=== PATIENT | female | born 1970 | race Caucasian/White ===

== ENCOUNTER → 2017-04-21 | Outpatient (CLI) | payer OTHER | LOC: FIMAGING 07:57 | PROVIDERS: ATTEND Nurse Practitioner Obstetrics & Gynecology | DX: Z12.31 Encounter for screening mammogram for malignant neoplasm of breast (principal) | CPT/HCPCS: G0202 ==

== ENCOUNTER → 2018-05-25 | Outpatient (CLI) | payer OTHER | LOC: FIMAGING 14:35 | DX: Z12.31 Encounter for screening mammogram for malignant neoplasm of breast (principal) ==

== ENCOUNTER 2018-08-20 05:45 | Day surgery (SDC) | payer OTHER ==
--- NOTE | 2018-08-19 21:00 | PDGENHP ---
History and Physical - Chief Complaint RIGHT HIP PAIN - History of Present Illness 1. Right~Femoroacetabular impingement (JULIET) Cam type~ 2. ~~Right Hip Dysplasia 3. Left Hip JULIET and Dysplasia - Asymptomatic HISTORY OF PRESENT ILLNESS: Carolis a 47 y.o.~very ~active female~who I have had the pleasure to consult on today.~I have enjoyed meeting her. She~lives in [place]. 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 ~She~is ; she~has two children. ~Carolenjoys snowboarding, running, biking, hiking, and anything outside. Alexandra's right~hip pain started May~2014, while snowboarding in [place], with no~previous complaints~and with some~recalled trauma or injury. ~Caroldoes not have~a known history of hip dysplasia. Presentation today is of~anterolateral right~hip pain. ~The hip does~wake her~ at night and does not~click and catch on her. Sitting does not present a problem for her. Caroldoes not~report suffering from lower back pain episodes. Carolhas not~participated in physical therapy and has not~tried other conservative measures. She~has not~received sufficient symptomatic improvement. Carolhas~utilized medication for pain management, including NSAID. Carolhas used medication for several months. Caroldenies issues with the left hip. ~ Carolunderstands that she~has a hip and pelvis problem which should be researched and wishes to get a better understanding of her~hip status, followed by an establishment of a treatment strategy, hoping she~would be able to get back to her~well being active life. History: Past medical history: ~ None which is relevant Relevant familial history: Father FINESSE Past surgical history: None Carolhas never received general anesthesia. I have reviewed, verified and agree with the past medical, surgical, family and social history. Current Medications:Curtishas a current medication list which includes the following prescription(s): ibuprofen. ALLERGIES:~has No Known Allergies. Objective: Physical Examination: Carolis 5 feet 5~inches tall and weighs~142~Lbs. Carolis AAO x3; she~is well- nourished, in NAD. Skin is warm and dry. ~Breathing is non-labored. ~CV with RRR by pulse. Abdomen is soft, NTND. ~Currently, she~walks with a normal~gait. She~has~minimal left leg length discrepancy and presents~with significant signs of joint laxity.~~Beighton Score 9. ~She~is fit looking. ~~ Trendelenburg sign is negative and proprioception~is reduced, left~side. Lower spine examination is negative~for sciatic or femoral nerve irritation with negative~SLR &~femoral stretch tests. Range of motion of the spine is normal~for flexion, extension, and rotations, with no~associated pain. SIJs examination is normal with abnormal bilateral tenderness~ROSENDA in relation and local tenderness. Strength, Sensation and pulses are normal - bilaterally Ankles and knees exams are normal~and no~mal-alignment is evident. Hip ROM (degrees): ER At 90~hip FL IR At 90~hip FL IR Neutral hip ER Neutral hip AB AD FL EX R 50 30 40 25 40 5 110 10 L 45 40 45 15 45 5 110 10 Specific hip and pelvis tests: Quadrant ROSENDA Roll Add. Longus R +++ + Negative Negative L + + Negative Negative Glut. Med ITB Pos. Imp R Negative Negative Negative L Negative Negative Negative Squeeze test measured strong Bony Symphysis pubis is pain free to touch while concentric activity of the rectus abdominis, does not~produce pain at its insertion. Ilio Psos specific tests are negative for pain during cycling for both hips~and unremarkable for snap. Greater trochanteric burse is tender with palpation on both hips. Piriformis tests: FAIR is negative, with no local signs of neuritis related to sciatic nerve. Thigh circumference is asymmetric with low muscle atrophy on Right side. Hamstrings tests are negative~functional contraction and negative~tendinopathy. Imaging: Radiology studies which I~have personally reviewed, analyzed and measured are below: XR: AP of the hip and pelvis: Performed in a good~technique Coccyx to pubic symphysis distance 2.5 cm. 10 degree caudal/cephal Specific measurements show: NSA~ Lat. Cam LCE Lat. Pincer C.Over~sign Sharp's angle A.I~% Head~Coverage % Sourcil~ Angle ATDmm R N - 18 - - 49 42 59 7 N L N - 18 - - 46 44 63 12 [address] [place]~Lines are preserved. Minimal Pathological signs are seen in the Symphysis Pubis. Minimal Pathological signs are seen at the Ischial~tuberosity. ~~~~~~~~~~~~~ Pos. wall sign Sup. Lat. OA Joint Space-WBZ Joint Space-Medial NAD R + + 4.3 mm 4.3 mm 21mm L + - 5.4 mm 4.6 mm 24 mm Sclerosis ~~Dysplasia Cysts ISS Comments R Negative ++ Negative Negative L Negative ++ Negative Negative There is posterior over coverage and anterior deficiency due to excessive socket ante-version X Table lateral: Anterior cam lesion is seen Impression and plan:~ Carolis a 47 y.o.~active female~suffering from symptomatic right hip pain due to Right Femoroacetabular impingement (JULIET) Cam type and Right Hip Dyplasia~ causing significant disability to her~and altering~her~sport and life activities. Physical examination, imaging, and her~story correspond with the diagnosis mentioned above. I have explained the diagnosis and its significance to Caroland we have discussed the various possible treatment options~and their implications~with her. These include a hip arthroscopy followed by FERNANDO (periacetabular osteotomy) aiming to address the above pathology. We had a lengthy discussion about surgical options, including how arthroscopy will correct the labral tear that is causing Carolsignificant pain due to the nature of this highly innervated structure. However, the dysplasia is only correctable with FERNANDO procedure. We explained how this surgery is an open procedure, and though patients tend to do well in the long-term, it involves significant pain in the first 2-4 weeks post-op and a rather lengthy rehab. 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 Alexandra~understands that she~will be weight-bearing post-operatively. Alexandra~understand that hip arthroscopy and FERNANDO are two separate procedures that are best performed one week apart, with the arthroscopy commencing first to "tighten up" any pathology evident in the hip joint (labral repair or reconstruction etc.) and the FERNANDO open procedure occurring 7-10 days later to realign the acetabulum. Alexandra~will review the info presented. CT with 3D recon will be done in order to evaluate femoral torsion and to pre plan an accurate and optimal volume and location of bony resection. We will also obtain an MR dGEMRIC in order to evaluate the cartilage quality and make sure it is still in good shape for this significant intervention. Carolwill return to us for a follow-up visit after obtaining the planned imaging modalities, to discuss in detail a more accurate diagnosis and possible surgical management. Carolis happy with this plan. I have also supplied her~with handouts, outlining the expected surgical treatment and rehab involved. I wish Carolall the best, ~~ Aristides Diamond MS, PA-C History Information - Allergies/Home Medication List Allergies/Adverse Reactions: No Known Allergies Allergy (Verified 07/31/11 13:00) Home Medications: Cholecalciferol Vit D3 [Vitamin D3 (*)] 1,000 units PO DAILY 07/27/18 [Last Taken Unknown] valACYclovir [Valtrex (*)] 500 mg PO BID PRN 07/27/18 [Last Taken Unknown] I have personally reviewed and updated: medical history - Social History Smoking Status: Never smoked Review of Systems Review of Systems: Physical Exam Physical Exam:
[2018-08-20] MEDS ORDERED: PREGABALIN 150 MG CAP PO ONE (05:54)
[2018-08-20] MEDS ORDERED: ceFAZolin 2 GM/DEXTROSE 100 ML IV ONE (05:54)
[2018-08-20] MEDS ORDERED: ACETAMINOPHEN 500 MG TAB PO ONE (05:54)
[2018-08-20] MEDS ORDERED: LR 1,000 ML IV ONE (05:55)
[2018-08-20] MEDS ORDERED: EPINEPHrine 30 MG/30 ML MDV (0.1 MG/0.1 ML) ONE (06:41)
[2018-08-20] MEDS ORDERED: BUPIVACAINE/EPI 0.25% 30 ML SDV ONE (06:41)
[2018-08-20] MEDS ORDERED: MIDAZOLAM 2 MG/2 ML VIAL IVP ONE (06:46)
[2018-08-20] MEDS ORDERED: SCOPOLAMINE HYDROBROMIDE 1 MG/3 DAYS PATCH TD ONE (06:47)
[2018-08-20] MEDS ORDERED: fentaNYL 100 MCG/2 ML INJ ONE (07:05)
[2018-08-20] MEDS ORDERED: PROPOFOL/EMULSION 500 MG/50 ML BOTTLE IV ONE ×2 (07:06→08:44)
[2018-08-20] MEDS ORDERED: PROPOFOL 200 MG/20 ML VIAL ONE (07:06)
--- NOTE | 2018-08-20 07:06 | PDANEPAE ---
ANE Past Medical History - Cardiovascular History Hx Hypertension: No Hx Arrhythmias: No Hx Chest Pain: No Hx Coronary Artery / Peripheral Vascular Disease: No Hx CHF / Valvular Disease: No Hx Palpitations: No - Pulmonary History Hx COPD: No Hx Asthma/Reactive Airway Disease: No Hx Recent Upper Respiratory Infection: No Hx Oxygen in Use at Home: No Hx Sleep Apnea: No Sleep Apnea Screening Result - Last Documented: Negative - Neurologic History Hx Cerebrovascular Accident: No Hx Seizures: No Hx Dementia: No - Endocrine History Hx Diabetes: No - Renal History Hx Renal Disorders: No - Liver History Hx Hepatic Disorders: No - Neurological & Psychiatric Hx Hx Neurological and Psychiatric Disorders: No - Cancer History Hx Cancer: No - Congenital Disorder History Hx Congenital Disorders: Yes Congenital History Comment: HIP DYSPLASIA - GI History Hx Gastrointestinal Disorders: No - Other Health History Other Health History: LABRAL TEAR - Chronic Pain History Chronic Pain: Yes (JAIMIE HIPS) - Surgical History Prior Surgeries: NONE ANE Review of Systems Review of Systems: - Exercise capacity METS (RN): 6 METS ANE Patient History - Allergies Allergies/Adverse Reactions: No Known Allergies Allergy (Verified 07/31/11 13:00) - Home Medications Home Medications: Cholecalciferol Vit D3 [Vitamin D3 (*)] 1,000 units PO DAILY 07/27/18 [Last Taken Unknown] valACYclovir [Valtrex (*)] 500 mg PO BID PRN 07/27/18 [Last Taken Unknown] - NPO status NPO Since - Liquids (Date): 08/20/18 NPO Since - Liquids (Time): 03:00 NPO Since - Solids (Date): 08/19/18 NPO Since - Solids (Time): 19:00 - Smoking Hx Smoking Status: Never smoked - Family Anes Hx Family Hx Anesthesia Complications: NONE ANE Labs/Vital Signs - Vital Signs Blood Pressure: 108/70 Heart Rate: 66 Respiratory Rate: 9 O2 Sat (%): 97 Height: 165.1 cm Weight: 64.41 kg ANE Physical Exam - Airway Neck exam: FROM Mallampati Score: Class 1 Mouth exam: normal dental/mouth exam - Pulmonary Pulmonary: no respiratory distress - Cardiovascular Cardiovascular: regular rate and rhythym - ASA Status ASA Status: II ANE Anesthesia Plan Anesthesia Plan: general endotracheal anesthesia
[2018-08-20] MEDS ORDERED: ROCURONIUM 50 MG/5 ML VIAL ONE ×2 (07:07→07:35)
[2018-08-20] MEDS ORDERED: DEXAMETHASONE 4 MG/ML VIAL ONE (07:35)
[2018-08-20] MEDS ORDERED: HYDROmorphONE/DILAUDID 2 MG/ML INJ ONE (07:40)
[2018-08-20] MEDS ORDERED: METOCLOPRAMIDE 10 MG/2 ML VIAL ONE (07:50)
[2018-08-20] MEDS ORDERED: fentaNYL 100 MCG/2 ML INJ IVP PRN (09:28)
[2018-08-20] MEDS ORDERED: METOCLOPRAMIDE 10 MG/2 ML VIAL IVP PRN (09:28)
[2018-08-20] MEDS ORDERED: HYDROCODONE/APAP 5/325 TAB PO PRN (09:28)
[2018-08-20] MEDS ORDERED: oxyCODONE IR 5 MG TAB PO PRN (09:28)
[2018-08-20] MEDS ORDERED: ONDANSETRON 4 MG/2 ML VIAL IVP PRN (09:28)
[2018-08-20] MEDS ORDERED: PROMETHAZINE HCL 25 MG/ML INJ IVP PRN (09:28)
[2018-08-20] MEDS ORDERED: DEXAMETHASONE 4 MG/ML VIAL IVP PRN (09:28)
[2018-08-20] MEDS ORDERED: HYDROmorphONE/DILAUDID 1 MG/ML INJ IVP PRN (09:28)
[2018-08-20] MEDS ORDERED: NALOXONE HCL 0.4 MG/ML INJ IVP PRN (09:28)
[2018-08-20] MEDS ORDERED: LR 500 ML IV PRN (09:28)
[2018-08-20] MEDS ORDERED: DIAZEPAM 5 MG/ML 1 ML SYR IVP PRN (09:28)
[2018-08-20] MEDS ORDERED: ALBUTEROL 3 ML DEYVIAL IH PRN (09:28)
[2018-08-20] MEDS ORDERED: ACETAMINOPHEN 500 MG TAB PO PRN (09:28)
[2018-08-20] MEDS ORDERED: MEPERIDINE 25 MG/0.5 ML AMP IVP PRN (09:28)
[2018-08-20] MEDS ORDERED: ONDANSETRON 4 MG/2 ML VIAL ONE (09:32)
[2018-08-20] MEDS ORDERED: KETOROLAC 30 MG/1 ML SDV ONE (09:32)
[2018-08-20] MEDS ORDERED: NEOSTIGMINE METHYLSULFATE 5 MG/5 ML SYR ONE (09:48)
[2018-08-20] MEDS ORDERED: GLYCOPYRROLATE 0.2 MG/1 ML VIAL ONE ×2 (09:48→09:56)
--- NOTE | 2018-08-20 10:37 | POSTANESTH ---
Post Anesthetic Evaluation Cardiovascular Status: Normal, Stable Respiratory Status: Normal, Stable Level of Consciousness/Mental Status: Can Participate in Eval Pain Control: Adequate, Prn Tx Ordered Nausea/Vomiting Control: Adequate, Prn Tx Ordered Complications Possibly Related to Anesthesia: None Noted
--- NOTE | 2018-08-20 10:48 | POSTOPPROG ---
Post Op Note Date of Operation: 08/20/18 Surgeon: Gaudencio Del Rio Logistics Technician: Dr. Braun Anesthesia: GET(General Endotracheal) Pre-op Diagnosis: RIGHT JULIET Post-op Diagnosis: RIGHT JULIET Procedure: Right hip arthroscopy Inf/Abcess present in the surg proc area at time of surgery?: No
[2018-08-20] MEDS ORDERED: HYDROCODONE/APAP 5/325 TAB ONE (11:16)
[2018-08-20 12:17] VITALS: BP 98/64
== END 2018-08-20 12:18 | disposition home or self-care (01) ==
LOC: FSGY 05:45
PROVIDERS: ATTEND Orthopaedic Surgery Sports Medicine
PROC: 0QQ64ZZ Repair Right Upper Femur, Percutaneous Endoscopic Approach (ICD-10-PCS; principal; 2018-08-20 07:15)
PROC: 0SQ94ZZ Repair Right Hip Joint, Percutaneous Endoscopic Approach (ICD-10-PCS; principal; 2018-08-20 07:15)
PROC: 0MQL4ZZ Repair Right Hip Bursa and Ligament, Percutaneous Endoscopic Approach (ICD-10-PCS; principal; 2018-08-20 07:15)
DX: Q65.89 Other specified congenital deformities of hip (principal); M76.891 Other specified enthesopathies of right lower limb, excluding foot; M24.151 Other articular cartilage disorders, right hip
CPT/HCPCS: C1713; J0171; J0690; J1100; J1170; J1885; J2250; J2405; J2704; J2710; J2765; J3010

== ENCOUNTER 2018-08-31 05:53 | Inpatient (IN) | payer OTHER ==
--- NOTE | 2018-08-30 20:43 | PDGENHP ---
History and Physical - Chief Complaint Right Hip Pain - History of Present Illness Diagnosis: 1. History of Right hip arthroscopy 2. ~~Right Hip Dysplasia 3. Left Hip JULIET and Dysplasia - Asymptomatic HISTORY OF PRESENT ILLNESS: Carolis a 47 y.o.~very ~active female~who I have had the pleasure to consult on today.~I have enjoyed meeting her. She~lives in [place]. 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 ~She~is ; she~has two children. ~Carolenjoys snowboarding, running, biking, hiking, and anything outside. Titos right~hip pain started May~2014, while snowboarding in [place], with no~previous complaints~and with some~recalled trauma or injury. ~Caroldoes not have~a known history of hip dysplasia. Presentation today is of~anterolateral right~hip pain. ~The hip does~wake her~ at night and does not~click and catch on her. Sitting does not present a problem for her. Caroldoes not~report suffering from lower back pain episodes. Carolhas not~participated in physical therapy and has not~tried other conservative measures. She~has not~received sufficient symptomatic improvement. Carolhas~utilized medication for pain management, including NSAID. Carolhas used medication for several months. Caroldenies issues with the left hip. ~ Carolunderstands that she~has a hip and pelvis problem which should be researched and wishes to get a better understanding of her~hip status, followed by an establishment of a treatment strategy, hoping she~would be able to get back to her~well being active life. History: Past medical history: ~ None which is relevant Relevant familial history: Father FINESSE Past surgical history: Right Hip Arthroscopy Carolhas done well with general anesthesia I have reviewed, verified and agree with the past medical, surgical, family and social history. Current Medications:Curtishas a current medication list which includes the following prescription(s): ibuprofen. ALLERGIES:~has No Known Allergies. Objective: Physical Examination: Carolis 5 feet 5~inches tall and weighs~142~Lbs. Carolis AAO x3; she~is well- nourished, in NAD. Skin is warm and dry. ~Breathing is non-labored. ~CV with RRR by pulse. Abdomen is soft, NTND. ~Currently, she~walks with a normal~gait. She~has~minimal left leg length discrepancy and presents~with significant signs of joint laxity.~~Beighton Score 9. ~She~is fit looking. ~~ Trendelenburg sign is negative and proprioception~is reduced, left~side. Lower spine examination is negative~for sciatic or femoral nerve irritation with negative~SLR &~femoral stretch tests. Range of motion of the spine is normal~for flexion, extension, and rotations, with no~associated pain. SIJs examination is normal with abnormal bilateral tenderness~ROSENDA in relation and local tenderness. Strength, Sensation and pulses are normal - bilaterally Ankles and knees exams are normal~and no~mal-alignment is evident. Hip ROM (degrees): ER At 90~hip FL IR At 90~hip FL IR Neutral hip ER Neutral hip AB AD FL EX R 50 30 40 25 40 5 110 10 L 45 40 45 15 45 5 110 10 Specific hip and pelvis tests: Quadrant ROSENDA Roll Add. Longus R +++ + Negative Negative L + + Negative Negative Glut. Med ITB Pos. Imp R Negative Negative Negative L Negative Negative Negative Squeeze test measured strong Bony Symphysis pubis is pain free to touch while concentric activity of the rectus abdominis, does not~produce pain at its insertion. Ilio Psos specific tests are negative for pain during cycling for both hips~and unremarkable for snap. Greater trochanteric burse is tender with palpation on both hips. Piriformis tests: FAIR is negative, with no local signs of neuritis related to sciatic nerve. Thigh circumference is asymmetric with low muscle atrophy on Right side. Hamstrings tests are negative~functional contraction and negative~tendinopathy. Imaging: Radiology studies which I~have personally reviewed, analyzed and measured are below: XR: AP of the hip and pelvis: Performed in a good~technique Coccyx to pubic symphysis distance 2.5 cm. 10 degree caudal/cephal Specific measurements show: NSA~ Lat. Cam LCE Lat. Pincer C.Over~sign Sharp's angle A.I~% Head~Coverage % Sourcil~ Angle ATDmm R N - 18 - - 49 42 59 7 N L N - 18 - - 46 44 63 12 [address] [place]~Lines are preserved. Minimal Pathological signs are seen in the Symphysis Pubis. Minimal Pathological signs are seen at the Ischial~tuberosity. ~~~~~~~~~~~~~ Pos. wall sign Sup. Lat. OA Joint Space-WBZ Joint Space-Medial NAD R + + 4.3 mm 4.3 mm 21mm L + - 5.4 mm 4.6 mm 24 mm Sclerosis ~~Dysplasia Cysts ISS Comments R Negative ++ Negative Negative L Negative ++ Negative Negative There is posterior over coverage and anterior deficiency due to excessive socket ante-version X Table lateral: Anterior cam lesion is seen Impression and plan:~ Carolis a 47 y.o.~active female~suffering from symptomatic right hip pain due to Right Femoroacetabular impingement (JULIET) Cam type and Right Hip Dyplasia~ causing significant disability to her~and altering~her~sport and life activities. Physical examination, imaging, and her~story correspond with the diagnosis mentioned above. I have explained the diagnosis and its significance to Caroland we have discussed the various possible treatment options~and their implications~with her. These include a hip arthroscopy followed by FERNANDO (periacetabular osteotomy) aiming to address the above pathology. We had a lengthy discussion about surgical options, including how arthroscopy will correct the labral tear that is causing Carolsignificant pain due to the nature of this highly innervated structure. However, the dysplasia is only correctable with FERNANDO procedure. We explained how this surgery is an open procedure, and though patients tend to do well in the long-term, it involves significant pain in the first 2-4 weeks post-op and a rather lengthy rehab. 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 Alexandra~understands that she~will be weight-bearing post-operatively. Alexandra~understand that hip arthroscopy and FERNANDO are two separate procedures that are best performed one week apart, with the arthroscopy commencing first to "tighten up" any pathology evident in the hip joint (labral repair or reconstruction etc.) and the FERNANDO open procedure occurring 7-10 days later to realign the acetabulum. Alexandra~will review the info presented. CT with 3D recon will be done in order to evaluate femoral torsion and to pre plan an accurate and optimal volume and location of bony resection. We will also obtain an MR dGEMRIC in order to evaluate the cartilage quality and make sure it is still in good shape for this significant intervention. Carolwill return to us for a follow-up visit after obtaining the planned imaging modalities, to discuss in detail a more accurate diagnosis and possible surgical management. Carolis happy with this plan. I have also supplied her~with handouts, outlining the expected surgical treatment and rehab involved. I wish Carolall the best, ~~ Marcella Moraes ATC History Information - Allergies/Home Medication List Allergies/Adverse Reactions: No Known Allergies Allergy (Verified 07/31/11 13:00) Home Medications: Cholecalciferol Vit D3 [Vitamin D3 (*)] 1,000 units PO DAILY 07/27/18 [Last Taken Unknown] valACYclovir [Valtrex (*)] 500 mg PO BID PRN 07/27/18 [Last Taken Unknown] Diazepam 08/22/18 [Last Taken Unknown] HYDROmorphone 08/22/18 [Last Taken Unknown] Naproxen 08/22/18 [Last Taken Unknown] Ondansetron 08/22/18 [Last Taken Unknown] I have personally reviewed and updated: medical history - Social History Smoking Status: Never smoked Review of Systems Review of Systems: Physical Exam Physical Exam:
[2018-08-31] MEDS ORDERED: SCOPOLAMINE HYDROBROMIDE 1 MG/3 DAYS PATCH TD ONE (06:06)
[2018-08-31] MEDS ORDERED: ceFAZolin 2 GM/DEXTROSE 100 ML IV ONE (06:06)
[2018-08-31] MEDS ORDERED: ACETAMINOPHEN 500 MG TAB PO ONE (06:06)
[2018-08-31] MEDS ORDERED: PREGABALIN 150 MG CAP PO ONE (06:06)
[2018-08-31] MEDS ORDERED: TRANEXAMIC ACID 1,000 MG in NS 100 ML IV ONE (06:06)
[2018-08-31] MEDS ORDERED: LR 1,000 ML IV ONE (06:09)
[2018-08-31] MEDS ORDERED: CITRATE DEXTROSE SOLN 500 ML BAG ONE (06:56)
[2018-08-31] MEDS ORDERED: MIDAZOLAM 2 MG/2 ML VIAL IVP ONE (06:57)
[2018-08-31] MEDS ORDERED: MIDAZOLAM 2 MG/2 ML VIAL ONE (07:00)
--- NOTE | 2018-08-31 07:00 | PDANEPAE ---
ANE Past Medical History - Cardiovascular History Hx Hypertension: No Hx Arrhythmias: No Hx Chest Pain: No Hx Coronary Artery / Peripheral Vascular Disease: No Hx CHF / Valvular Disease: No Hx Palpitations: No - Pulmonary History Hx COPD: No Hx Asthma/Reactive Airway Disease: No Hx Recent Upper Respiratory Infection: No Hx Oxygen in Use at Home: No Hx Sleep Apnea: No Sleep Apnea Screening Result - Last Documented: Negative - Neurologic History Hx Cerebrovascular Accident: No Hx Seizures: No Hx Dementia: No - Endocrine History Hx Diabetes: No Obesity: no - Renal History Hx Renal Disorders: No - Liver History Hx Hepatic Disorders: No - Neurological & Psychiatric Hx Hx Neurological and Psychiatric Disorders: No - Cancer History Hx Cancer: No - Congenital Disorder History Hx Congenital Disorders: Yes Congenital History Comment: HIP DYSPLASIA - GI History GERD: no Hx Gastrointestinal Disorders: No - Other Health History Other Health History: NEG - Chronic Pain History Chronic Pain: Yes (R HIP) - Surgical History Prior Surgeries: R HIP ARTHROSCOPY FEMOROPLASTY W/LABRAL REPAIR - 08/20/18 ANE Review of Systems Review of Systems: - Exercise capacity METS (RN): 6 METS ANE Patient History - Allergies Allergies/Adverse Reactions: No Known Allergies Allergy (Verified 07/31/11 13:00) - Home Medications Home medications: home medication list seen and reviewed Home Medications: Cholecalciferol Vit D3 [Vitamin D3 (*)] 1,000 units PO DAILY 07/27/18 [Last Taken 3 Weeks Ago ~08/10/18] valACYclovir [Valtrex (*)] 500 mg PO BID PRN 07/27/18 [Last Taken 3 Weeks Ago ~ 08/10/18] Diazepam 08/22/18 [Last Taken Unknown] HYDROmorphone 08/22/18 [Last Taken 08/21/18] Naproxen 08/22/18 [Last Taken 08/27/18] Ondansetron 08/22/18 [Last Taken 1 Week Ago ~08/24/18] - NPO status NPO Status: no food or drink >8 hours NPO Since - Liquids (Date): 08/30/18 NPO Since - Liquids (Time): 22:30 NPO Since - Solids (Date): 08/30/18 NPO Since - Solids (Time): 19:30 - Anes Hx Anes Hx: no prior problems - Smoking Hx Smoking Status: Never smoked - Family Anes Hx Family Hx Anesthesia Complications: NONE ANE Labs/Vital Signs - Labs Result Diagrams: 08/31/18 06:34 - Vital Signs Blood Pressure: 121/81 Heart Rate: 69 Respiratory Rate: 18 O2 Sat (%): 97 Height: 165.1 cm Weight: 64.41 kg ANE Physical Exam - Airway Neck exam: FROM Mallampati Score: Class 1 Mouth exam: normal dental/mouth exam - Pulmonary Pulmonary: no respiratory distress, no rales or rhonchi, clear to auscultation - Cardiovascular Cardiovascular: regular rate and rhythym, no murmur, rub, or gallop - ASA Status ASA Status: I ANE Anesthesia Plan Anesthesia Plan: general endotracheal anesthesia, spinal (Morphine)
[2018-08-31] MEDS ORDERED: morphINE PF 5 MG/10 ML INJ ONE (07:11)
[2018-08-31] MEDS ORDERED: PROPOFOL 200 MG/20 ML VIAL ONE (07:11)
[2018-08-31] MEDS ORDERED: DEXAMETHASONE 4 MG/ML VIAL ONE ×2 (07:30)
[2018-08-31] MEDS ORDERED: LIDOCAINE 2% 2 ML INJ ONE (07:30)
[2018-08-31] MEDS ORDERED: ROCURONIUM 50 MG/5 ML VIAL ONE (07:30)
[2018-08-31] MEDS ORDERED: ROPIVACAINE HCL 150 MG/30 ML INJ ONE ×2 (07:31→07:43)
[2018-08-31] MEDS ORDERED: PHENYLEPHRINE HCL 100 MCG/ML SYR ONE (07:38)
[2018-08-31] MEDS ORDERED: PHENYLEPHRINE 10 MG/ML SDV ONE (07:38)
[2018-08-31] MEDS ORDERED: ceFAZolin 1 GM VIAL ONE (07:43)
[2018-08-31] MEDS ORDERED: GLYCOPYRROLATE 0.2 MG/1 ML VIAL ONE ×2 (08:20→10:07)
[2018-08-31] MEDS ORDERED: ALBUMIN 5% 250 ML BOTTLE IV ONE (11:07)
[2018-08-31] MEDS ORDERED: ePHEDrine SULFATE 25 MG/5 ML SYR ONE (11:22)
[2018-08-31] MEDS ORDERED: ONDANSETRON 4 MG/2 ML VIAL IVP PRN ×2 (11:33→12:42)
[2018-08-31] MEDS ORDERED: fentaNYL 100 MCG/2 ML INJ IVP PRN (11:33)
[2018-08-31] MEDS ORDERED: oxyCODONE IR 5 MG TAB PO PRN (11:33)
[2018-08-31] MEDS ORDERED: PROMETHAZINE HCL 25 MG/ML INJ IVP PRN (11:33)
[2018-08-31] MEDS ORDERED: LR 500 ML IV PRN (11:33)
[2018-08-31] MEDS ORDERED: NALOXONE HCL 0.4 MG/ML INJ IVP PRN ×3 (11:33→12:42)
[2018-08-31] MEDS ORDERED: HYDROCODONE/APAP 5/325 TAB PO PRN (11:33)
[2018-08-31] MEDS ORDERED: ACETAMINOPHEN 500 MG TAB PO PRN (11:33)
[2018-08-31] MEDS ORDERED: DIAZEPAM 10 MG/2 ML SYR IVP PRN (11:33)
[2018-08-31] MEDS ORDERED: MEPERIDINE 25 MG/0.5 ML AMP IVP PRN (11:33)
[2018-08-31] MEDS ORDERED: PHENYLEPHRINE HCL 100 MCG/ML SYR IVP PRN (11:33)
[2018-08-31] MEDS ORDERED: BISACODYL 10 MG SUPP PR PRN (12:28)
[2018-08-31] MEDS ORDERED: LACTULOSE 20 GM/30 ML UDCUP PO PRN (12:28)
[2018-08-31] MEDS ORDERED: ONDANSETRON DISINTEGRATING 4 MG TAB PO PRN (12:28)
[2018-08-31] MEDS ORDERED: DIAZEPAM 2 MG TAB PO PRN (12:28)
[2018-08-31] MEDS ORDERED: MAGNESIUM HYDROXIDE 30 ML UDCUP PO PRN (12:28)
[2018-08-31] MEDS ORDERED: diphenhydrAMINE 25 MG CAP PO PRN (12:30)
[2018-08-31] MEDS ORDERED: HYDROmorphONE/DILAUDID 6 MG/30 ML PCA IV PRN (12:30)
[2018-08-31] MEDS ORDERED: oxyCODONE IR 15 MG TAB PO PRN (12:31)
--- NOTE | 2018-08-31 12:42 | POSTANESTH ---
Post Anesthetic Evaluation Cardiovascular Status: Normal, Stable, Similar to Pre-Op Cond Respiratory Status: Normal, Stable, Similar to Pre-op Cond. Level of Consciousness/Mental Status: Can Participate in Eval, Alert and Oriented Pain Control: Adequate, Prn Tx Ordered Nausea/Vomiting Control: Adequate, Prn Tx Ordered Complications Possibly Related to Anesthesia: None Noted
--- NOTE | 2018-08-31 13:06 | PDMN ---
Medical Necessity Medical necessity: Pt meets inpt criteria per MD order and Musculoskeletal surgery GRG, op: periacetabular osteotomy for hip dysplasia, [facility] IP only list, AUTH#[id number] CPT 28405 INPT. 47 y/o w/R hip dysplasia admitted for above surgery and post-op care.
[2018-08-31] MEDS ORDERED: oxyCODONE IR 5 MG TAB PO SCH (14:00)
[2018-08-31] MEDS: NAPROXEN SODIUM 220 MG TAB PO SCH ×2 (15:12→20:32)
[2018-08-31] MEDS ORDERED: HYDROmorphONE/DILAUDID 2 MG TAB PO PRN (16:31)
[2018-08-31] MEDS ORDERED: valACYclovir 500 MG TAB PO PRN (16:32)
[2018-08-31] MEDS: HYDROmorphONE/DILAUDID 4 MG TAB PO SCH ×2 (18:16→21:57)
[2018-08-31] MEDS: NS 1,000 ML IV SCH (19:20)
[2018-08-31] MEDS: SENNOSIDES/DOCUSATE SODIUM TAB PO SCH (20:31)
--- NOTE | 2018-08-31 21:03 | POSTOPPROG ---
Post Op Note Date of Operation: 08/31/18 Surgeon: Gaudencio Del Rio Franchise Broker: Dr. Braun Anesthesia: GET(General Endotracheal) Pre-op Diagnosis: RIGHT HIP DYSPLASIA Post-op Diagnosis: RIGHT HIP DYSPLASIA Procedure: RIGHT FERNANDO Inf/Abcess present in the surg proc area at time of surgery?: No
[2018-09-01] MEDS: HYDROmorphONE/DILAUDID 4 MG TAB PO SCH ×7 (01:27→22:07)
[2018-09-01] MEDS: NS 1,000 ML IV SCH ×2 (04:15→14:05)
[2018-09-01] MEDS: NAPROXEN SODIUM 220 MG TAB PO SCH ×3 (09:24→22:08)
[2018-09-01] MEDS: PANTOPRAZOLE SODIUM 40 MG TAB PO SCH (09:25)
[2018-09-01] MEDS: SENNOSIDES/DOCUSATE SODIUM TAB PO SCH ×2 (09:26→22:08)
[2018-09-01] MEDS: POLYETHYLENE GLYCOL 3350 17 GM PKT PO PRN (09:30)
--- NOTE | 2018-09-01 10:33 | ASMTCMCOM ---
CM Note CM Note Notes: CM reviewed pt's chart for d/c planning. Pt is a 47 y/o, active woman, with no significant medical hx, who presented at her physician's office with right hip pain which following a ski trip. Hip arthroscopy and FERNANDO have been recommended. Right FERNANDO was performed yesterday. PT/OT evals have been ordered. CM will follow for recommendations. D/C Plan: TBD Date Signed: 09/01/2018 10:32 AM Electronically Signed By:Katiuska Perdue
[2018-09-01] MEDS: ACETAMINOPHEN 325 MG TAB PO PRN ×2 (10:49→17:56)
--- NOTE | 2018-09-01 11:01 | SOAPPROG ---
SOAP Progress Note Assessment/Plan: Assessment: doing well pain luz, no ROAD TEST EXAMINER usage, no side effects, mild headache but not positional, unlikely to be spinal headache Plan:discharge per surgeon 09/01/18 10:58 Objective: Vital Signs Temp Pulse Resp BP Pulse Ox 36.7 C 68 14 93/51 L 100 09/01/18 10:00 09/01/18 10:00 09/01/18 10:00 09/01/18 10:00 09/01/18 10:00 Laboratory Results 09/01/18 04:16 09/01/18 04:16 08/31/18 09/01/18 09/02/18 05:59 05:59 05:59 Intake Total 4300 Output Total 2475 Balance 1825 Physical Exam - Physical Exam General Appearance: WD/WN, alert, no apparent distress EENT: PERRL/EOMI, normal ENT inspection, pharynx normal, TMs normal Neck: non-tender, full range of motion, supple, normal inspection Respiratory: chest non-tender, lungs clear, normal breath sounds Cardiac/Chest: normal peripheral pulses, regular rate, rhythm Peripheral Pulses: 2+: carotid (R), carotid (L), femoral (R), femoral (L), dorsalis-pedis (R), dorsalis-pedis (L) Pelvic Exam: deferred Rectal: deferred Back: Normal inspection Skin: normal color, warm/dry Lymphatic: no adenopathy Extremities: normal inspection, normal capillary refill Neuro/Psych: no motor/sensory deficits, alert, normal mood/affect, oriented x 3 ICD10 Worksheet Patient Problems: Problems Problem Status Onset Pain Acute Post-op pain Acute post op pain Acute - ICD10 Problem Qualifiers (1) Pain (3) Post-op pain
--- NOTE | 2018-09-01 11:31 | PDGENHP ---
History and Physical History and Physical: CC: Asked by Dr. Abril Antonio to evaluate and assist in the care of this patient who has had periacetabular osteotomy HISTORY: This patient was admitted the hospital yesterday for elective surgery due to a bilateral hip problems and has had a periacetabular osteotomy procedure yesterday which was uncomplicated. There been no difficulties overnight. 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 She has little appetite but is eating and has no nausea. There are no respiratory or cardiac symptoms, no neurologic symptoms, no fever type symptoms. Overall she is very healthy with no cardiac, pulmonary, neurologic, endocrine, renal, skin or liver illnesses. She has an IUD with medication and is not having menstrual period so there is no iron deficiency history. She does mention to me that after recent arthroscopy she had 5 days without a bowel movement after surgery and she thinks this was due to pain medicines. 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 I have reviewed the list and ordered appropriate medicines. PHYSICAL EXAMINATION: Vital Signs: Some hypotension overnight as low as 80/50 without tachycardia, normal respirations and temperature's, no hypoxemia Examination: General: alert, oriented, good mentation, relaxed lying in bed Skin: warm, dry, good color, no rash HEENT: normal Neck: no mass or jvd Resps: relaxed Lungs: clear breath sounds Heart: regular, no murmur Abdomen: soft, nondistended, nontender, +BS Upper Extremities: normal Lower Extremities: no edema, warm Neurologic: normal speech/language, normal make up editor, no focal weakness IV site: looks normal LABORATORY DATA: Hemoglobin decreased to 9.7 otherwise stable CBC Renal function and electrolytes stable ASSESSMENT: * Status post periacetabular osteotomy * Expected blood loss anemia from surgery * No other acute medical issues at this time PLANS: * Will continue to follow in the hospital * No specific new evaluations or therapies indicated at this time * Bowel protocol * If she has significant constipation as she did after her arthroscopic surgery , could use some relative store
--- NOTE | 2018-09-01 21:27 | SOAPPROG ---
SOAP Progress Note Assessment/Plan: Assessment: 1 day post op Right Periacetabular Osteotomy Plan: wean off FINANCIAL CONSULTANT Dilaudid PO up with PT/OT SCDs/81mg aspirin for DVT prophylaxis Pelvis x-ray on POD#3 09/01/18 21:23 Subjective: Alexandra is doing well this evening. Her hip pain is a "2/10" but reports having a tension DAVIDSON that is worse. Maeve was taken out today. She denies cp, sob or nausea. She's been a bit hypotensive, no tachycardia. Objective: Vital Signs Temp Pulse Resp BP Pulse Ox 36.9 C 79 16 107/53 L 92 09/01/18 19:23 09/01/18 19:23 09/01/18 19:23 09/01/18 19:23 09/01/18 19:23 Laboratory Results 09/01/18 04:16 09/01/18 04:16 08/31/18 09/01/18 09/02/18 05:59 05:59 05:59 Intake Total 4300 3100 Output Total 2475 4050 Balance 1825 -950 Well appearing in NAD H/H expected values Right Hip: some edema and ecchymosis some thigh numbness NVI distally full ROM of foot and ankle ICD10 Worksheet Patient Problems: Problems Problem Status Onset Pain Acute Post-op pain Acute post op pain Acute
[2018-09-02] MEDS: ONDANSETRON 4 MG/2 ML VIAL IVP PRN ×2 (00:38→08:45)
[2018-09-02] MEDS: HYDROmorphONE/DILAUDID 4 MG TAB PO SCH ×4 (01:55→14:55)
[2018-09-02] MEDS: ACETAMINOPHEN 325 MG TAB PO PRN ×2 (06:08→21:33)
[2018-09-02] MEDS: NAPROXEN SODIUM 220 MG TAB PO SCH ×5 (11:06→21:33)
[2018-09-02] MEDS: PANTOPRAZOLE SODIUM 40 MG TAB PO SCH (11:08)
[2018-09-02] MEDS: SENNOSIDES/DOCUSATE SODIUM TAB PO SCH ×2 (11:08→21:33)
[2018-09-02] MEDS ORDERED: PROMETHAZINE HCL 25 MG/ML INJ IVP PRN ×2 (11:24→11:25)
--- NOTE | 2018-09-02 11:55 | HOSPPROG ---
Hospitalist Progress Note Assessment/Plan: DIAGNOSES: * Status post periacetabular osteotomy * Nausea vomiting, suspect combination of pain, pain medicines as main triggers * Expected blood loss anemia from surgery * No other acute medical issues at this time PLANS: * Continue p.r.n. Antiemetics * Cut back on narcotic as able * Activity with therapies as able SUBJECTIVE: Complains of persistent nausea through the morning and some vomiting, has had 2 doses of Zofran since midnight which give brief relief No abdominal pain, no blood in emesis OBJECTIVE Vitals reviewed: Stable without fever overall, 1 blood pressure early this morning was a bit low Exam: alert oriented looks uncomfortable from the nausea skin warm dry color ok resps not labored lungs clear BSs heart regular abd soft nondistended nontender, bowel sounds present limbs warm, no edema iv site ok Objective: Vital Signs Temp Pulse Resp BP Pulse Ox 36.5 C 61 14 101/67 96 09/02/18 11:22 09/02/18 11:22 09/02/18 11:22 09/02/18 11:22 09/02/18 11:22 Laboratory Results 09/01/18 04:16 09/01/18 04:16 09/01/18 09/02/18 09/03/18 06:59 06:59 06:59 Intake Total 4300 3400 Output Total 6775 0880 1350 Balance 1825 -1050 -1350 ICD10 Worksheet Patient Problems: Problems Problem Status Onset Pain Acute Post-op pain Acute post op pain Acute
[2018-09-02] MEDS: ASPIRIN EC 81 MG TAB PO SCH (13:32)
[2018-09-02] MEDS: POLYETHYLENE GLYCOL 3350 17 GM PKT PO PRN (16:00)
[2018-09-02] MEDS ORDERED: oxyCODONE IR 5 MG TAB PO PRN ×3 (16:12→16:15)
--- NOTE | 2018-09-02 16:19 | SOAPPROG ---
SOAP Progress Note Assessment/Plan: Assessment: 47 yo F POD#2 s/p R FERNANDO. Doing well except nausea/vomiting associated with dilaudid. 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 No CP/SOB. Objective: Vital Signs Temp Pulse Resp BP Pulse Ox 36.9 C 75 14 104/60 99 09/02/18 15:59 09/02/18 15:59 09/02/18 15:59 09/02/18 15:59 09/02/18 15:59 Laboratory Results 09/01/18 04:16 09/01/18 04:16 09/01/18 09/02/18 09/03/18 05:59 05:59 05:59 Intake Total 4300 3400 Output Total 2475 4450 1550 Balance 1825 -1050 -1550 Gen: NAD R hip dressings c/d/i Some thigh ecchymosis and swelling Decreased LFCN sensation Distally NVI ICD10 Worksheet Patient Problems: Problems Problem Status Onset Pain Acute Post-op pain Acute post op pain Acute
[2018-09-02] MEDS: NS 1,000 ML IV SCH (20:51)
[2018-09-03] MEDS: ACETAMINOPHEN 325 MG TAB PO PRN (05:30)
[2018-09-03] MEDS: NAPROXEN SODIUM 220 MG TAB PO SCH (08:19)
[2018-09-03] MEDS: SENNOSIDES/DOCUSATE SODIUM TAB PO SCH (08:19)
[2018-09-03] MEDS: PANTOPRAZOLE SODIUM 40 MG TAB PO SCH (08:20)
[2018-09-03] MEDS: ASPIRIN EC 81 MG TAB PO SCH (08:20)
[2018-09-03] MEDS: oxyCODONE IR 5 MG TAB PO PRN ×2 (08:30→12:20)
--- NOTE | 2018-09-03 08:52 | SOAPPROG ---
SOAP Progress Note Assessment/Plan: Assessment: 3rd day post op Right Periacetabular Osteotomy Plan: Oxycodone up with PT/OT SCDs/81mg aspirin for DVT prophylaxis home today if pelvis x-ray is cleared 09/01/18 21:23 09/03/18 08:49 Subjective: Alexandra's nausea has resolved, it seems clear it was associated with Dilaudid. Her pain is not significant. She has been up to bathroom and with PT/OT. She is ready to go home Objective: Vital Signs Temp Pulse Resp BP Pulse Ox 36.7 C 85 14 119/66 95 09/03/18 08:00 09/03/18 08:00 09/03/18 08:00 09/03/18 08:00 09/03/18 08:00 Laboratory Results 09/01/18 04:16 09/01/18 04:16 09/02/18 09/03/18 09/04/18 05:59 05:59 05:59 Intake Total 3400 3925 Output Total 4450 3750 Balance -1050 175 Well appearing in NAD Right Hip : some edema and ecchymosis thigh numbness NVI distally full ROM of foot and ankle - Pending Discharge Pending Discharge Within 24 Hours: Yes Pending Discharge Date: 09/04/18 Pending Discharge Time: 11:00 ICD10 Worksheet Patient Problems: Problems Problem Status Onset Pain Acute Post-op pain Acute post op pain Acute
[2018-09-03 12:07] VITALS: BP 111/66
--- NOTE | 2018-09-03 12:09 | ASDISCHSUM ---
Discharge Information Plan Status:Home with No Needs Medically Cleared to Leave:09/03/2018 Discharge Date:09/03/2018 CM D/C Disposition:Home, Routine, Self-Care ADT D/C Disposition: Projected Discharge Date:09/03/2018 Transportation at D/C:Family Discharge Delay Reason: Follow-Up Date:09/03/2018 Discharge Slot: Final Diagnosis: Placement Information Patient Contact Information Contact Name:TERESA Relationship: Address:[address] [place] [address] Work Phone: City:[place] [employer] [facility] Phone: State/Zip Code:[place] [address] Email: Financial Information Financial Class:HMO and PPO Plans Primary Plan Desc:RAMONE PPO POS HMO Primary Plan Number:[id number] Secondary Plan Desc: Secondary Plan Number: Assessment Information LACE LACE Length of stay for Answers: 3 days current admission Acuity / Level of Answers: Yes Care: Did the patient have an inpatient admission? # of Emergency department Answers: 0 visits in the last 6 months Score: 6 Date Signed: 09/03/2018 11:52 AM Electronically Signed By:SELIN Fields [facility] Progress Note CM Note MARIAN Note Notes: CM reviewed pt's chart for d/c planning. Pt is a 47 y/o, active woman, with no significant medical hx, who presented at her physician's office with right hip pain which following a ski trip. Hip arthroscopy and FERNANDO have been recommended. Right FERNANDO was performed yesterday. PT/OT evals have been ordered. CM will follow for recommendations. D/C Plan: TBD Date Signed: 09/01/2018 10:32 AM Electronically Signed By:Katiuska Perdue Case Management Discharge Plan Note Case Management Discharge Discharge Order Complete? Answers: Yes Patient to Obtain Answers: via Family Medications Transportation Arranged Answers: Family/Friends Discharge Comments Notes: Pt is s/p a R periacetabular osteotomy. She has been medically cleared to d/c today. PT/OT cleared. Pt is discharging home independent with her . She has no CM needs. Date Signed: 09/03/2018 11:55 AM Electronically Signed By:SELIN Fields Intervention Information
--- NOTE | 2018-09-06 23:12 | GDS ---
[f rep st] DISCHARGE SUMMARY Alexandra underwent a right periacetabular osteotomy for right hip dysplasia on August 31, 2018. Intraoperatively, spinal and Mcfarlane catheters were placed. She was well pain managed postoperatively with spinal SCRAP IRON LOADER and oral analgesia. She was up with Physical Therapy her 1st postoperative day. She was wearing sequential compression devices and taking 81 mg baby aspirin for DVT prophylaxis. The Mcfarlane came out by her 2nd postoperative day. Pelvis x-rays were obtained on her 3rd postoperative day. These showed good bone and screw fixation. She did have some nausea associated with the Dilaudid. This was switched to oxycodone, and she did well thereafter. She was discharged by her 3rd postoperative day in good condition. She will follow up with Dr. Del Rio in 2 weeks' time. Until that time, she will be nonweightbearing on the right lower extremity. She will wear SCDs 24 hours a day 7 days a week for 2 weeks and thereafter only at night for another week. She also will take 81 mg baby aspirin daily for 1 month. Both of these for DVT prophylaxis. She will finish the naproxen prescription. She was discharged in good condition. /[id number]/MODL MTDD
== END 2018-09-03 14:09 | disposition home or self-care (01) | DRG 516 ==
LOC: F3N 05:53
PROVIDERS: ADMIT Orthopaedic Surgery Sports Medicine; ATTEND Orthopaedic Surgery Sports Medicine
PROC: 0QS404Z Reposition Right Acetabulum with Internal Fixation Device, Open Approach (ICD-10-PCS; principal; 2018-08-31 07:15)
DX: Q65.89 Other specified congenital deformities of hip (principal); D62 Acute posthemorrhagic anemia
CPT/HCPCS: 97116-GP; 97161-GP; 97165-GO; 97530-GO; 97535-GO; C1713; J0690; J1100; J1170; J1200; J2250; J2270; J2274; J2370; J2405; J2550; J2704; J2795; P9041